=== PATIENT | female | born 1995 | race Caucasian/White ===

== ENCOUNTER 2020-09-12 20:12 | Emergency (ER) | payer BC ==
[~2020-09-12] VITALS: Ht 170.2 cm; Wt 122.7 kg
--- NOTE | 2020-09-12 21:20 | ED Lower Extremity ---
General Chief Complaint: Lower Extremity Stated Complaint: L LEG PAIN AFTER FALLING OFF POOL LADER Nursing Triage Note: PT TO TRIAGE WITH C/O LEFT KNEE PAIN AFTER SLIPPING ON A POOL LADDER AND GETTING LEG STUCK IN LADDER. Nursing Sepsis Screen: No Definite Risk Source: patient Exam Limitations: no limitations History of Present Illness Date Seen by Provider: Sep 12, 2020 Time Seen by Provider: 20:46 Initial Comments This 25-year-old young lady presents to the emergency room with pain to the left lower leg and knee after slipping on a pool ladder. She was getting into the water facing the pool when her foot slipped and got caught in the rungs. She fell backwards onto the decking. She now states she is unable to bear weight because of pain in this distribution. She denies any other injury. She has some swelling, contusion, and superficial abrasion to the anterior lateral aspect of the left lower leg. She has a generalized pain in the knee as well, especially with extension or bearing weight. Allergies and Home Medications Allergies Coded Allergies: metronidazole (Verified Allergy, Mild, Rash, 09/12/20) Patient Home Medication List Home Medication List Reviewed: Yes Review of Systems Constitutional: no symptoms reported EENTM: no symptoms reported Respiratory: no symptoms reported Cardiovascular: no symptoms reported Gastrointestinal: no symptoms reported Genitourinary: no symptoms reported Musculoskeletal: see HPI Skin: see HPI Psychiatric/Neurological: No Symptoms Reported Past Ewqhgwg-Eghcei-Ajremn Hx Past Med/Social Hx: Reviewed Nursing Past Med/Soc Hx Patient Social History Alcohol Use: Occasionally Uses Smoking Status: Never a Smoker Type Used: Electronic/Vapor 2nd Hand Smoke Exposure: No Recent Infectious Disease Expo: No Recent Hopitalizations: No Seasonal Allergies Seasonal Allergies: Yes Past Medical History Surgeries: Yes (WISDOM TEETH) Adenoidectomy, Tonsillectomy Respiratory: No Cardiac: No Neurological: No : No Genitourinary: No Gastrointestinal: Yes Irritable Bowel Musculoskeletal: Yes Fractures Endocrine: No HEENT: No Cancer: No Psychosocial: Yes ADD/ADHD, Anxiety, Depression Psoriasis Blood Disorders: Yes (VON WILDEBRANDS DISEASE) Physical Exam Vital Signs Vital Signs - First Documented 09/12/20 20:32 Temp 37.3 Pulse 83 Resp 18 B/P (MAP) 122/88 (99) O2 Delivery Room Air Capillary Refill : Less Than 3 Seconds Height, Weight, BMI Height: '" Weight: lbs. oz. kg; 42.00 BMI Method: General Appearance: WD/WN, mild distress HEENT: normal ENT inspection Cardiovascular: regular rate, rhythm, no murmur Respiratory: lungs clear, normal breath sounds, no respiratory distress Legs: left leg limited range of motion, left leg pain, left leg soft tissue tenderness, left leg swelling, left leg other (There are superficial abrasions with swelling on the anterior lateral aspect of the left lower leg and soft tissue tenderness on the lateral aspect and posterior aspect of the proximal lower leg.) Knees: left knee normal inspection, left knee pain, left knee other (Tenderness to palpation around the joint line and pain with extension of the knee) Feet: left foot non-tender, left foot normal inspection, left foot normal range of motion, left foot no evidence of injury Neurologic/Tendon: normal sensation, normal motor functions, normal tendon functions Neurologic/Psychiatric: home advisor II-XII nml as tested, no motor/sensory deficits, alert, normal mood/affect, oriented x 3 Skin: normal color, warm/dry Progress/Results/Core Measures Results/Orders My Orders Orders - CHARMAINE LUGO MD Tibia/Fibula, Left, 2 Views (09/12/20 20:55) Knee, Left, 3 Views (09/12/20 20:55) Rx-Hydrocodone/Apap 5-325 Mg (Rx-Vicodin (09/12/20 22:45) Vital Signs/I&O 09/12/20 20:32 Temp 37.3 Pulse 83 Resp 18 B/P (MAP) 122/88 (99) O2 Delivery Room Air Blood Pressure Mean: 99 Departure Impression Primary Impression: Injury of left knee Qualified Codes: S89.92XA - Unspecified injury of left lower leg, initial encounter Disposition: HOME, SELF-CARE Condition: Stable Departure-Patient Inst. Referrals: NO,LOCAL PHYSICIAN (PCP/Family) Primary Care Physician Patient Instructions: Knee Sprain (DC), Knee Pain (DC) Add. Discharge Instructions: You may continue using Aleve up to 500 mg every 12 hours as needed for primary pain control. Add hydrocodone for pain not controlled by Aleve. Elevating and icing in 20-minute intervals should also be helpful for reducing pain and swelling. Contact your primary care provider tomorrow and schedule a follow-up appointment. If your symptoms are not rapidly improving, you may need additional evaluation and/or imaging such as MRI. Use crutches as needed if there is pain with weightbearing or walking. Use the knee immobilizer for stability and comfort. Call with questions or concerns. Return to care if symptoms worsen. All discharge instructions reviewed with patient and/or family. Voiced understanding. Scripts Hydrocodone/Acetaminophen (Hydrocodone-Acetamin 5-325 mg) 1 Each Tablet 1 TAB PO Q6H PRN for PAIN-BREAKTHROUGH, #10 TAB Prov: CHARMAINE LUGO MD 09/12/20 CHARMAINE LUGO MD Sep 12, 2020 21:20
--- NOTE | 2020-09-12 21:44 | Diagnostic Imaging Report ---
EXAMINATION: Left knee 3 views HISTORY: Knee pain COMPARISON: None available. FINDINGS: The alignment is normal. No fracture is seen. Joint spaces are normal. There is no joint effusion. IMPRESSION: 1. No fracture. Dictated by: Dictated on workstation # [id number]
--- NOTE | 2020-09-12 21:45 | Diagnostic Imaging Report ---
EXAMINATION: Left tibia and fibula 2 views HISTORY: Leg pain COMPARISON: None available. FINDINGS: Alignment is normal. No fracture is seen. IMPRESSION: 1. No fracture in the left lower extremity. Dictated by: Dictated on workstation # [id number]
[2020-09-12] MEDS ORDERED: ACHD5005 PO (22:40)
[2020-09-12 22:55] VITALS: BP 122/88
== END 2020-09-12 23:01 | disposition home or self-care (01) ==
LOC: ER 20:15
DX: S89.92XA Unspecified injury of left lower leg, initial encounter (principal); Z88.8 Allergy status to other drugs, medicaments and biological substances; W01.0XXA Fall on same level from slipping, tripping and stumbling without subsequent striking against object, initial encounter
CPT/HCPCS: 73562; 73590; L1830